=== PATIENT | female | born 1950 | race Caucasian/White ===

== ENCOUNTER 2021-07-03 08:13 | Outpatient (CLI) | payer MEDICARE, MEDICAID ==
[~2021-07-03] VITALS: Ht 160 cm; Wt 66.8 kg
[~2021-07-03 08:13] MED LIST: DIAZ5TAB4 PO; DOXE10CA PO; FLUO20CA16 PO; LACT20SO PO; LEVO25TA55 PO; PANT40TA77 PO
[2021-07-03] MEDS ORDERED: TRAM50TA PO (08:57)
[2021-07-03] MEDS ORDERED: DOXE25CA PO (08:57)
[2021-07-03] MEDS ORDERED: FLUO40CA9 PO (08:57)
[2021-07-03] MEDS ORDERED: SPIR25TA PO (08:57)
[2021-07-03 09:10] VITALS: BP 141/61
[2021-07-03 09:36] VITALS: BP 146/62
[2021-07-03 09:50] VITALS: BP 140/57
[2021-07-03 09:55] VITALS: BP 136/61
--- NOTE | 2021-07-03 09:59 | RAD ---
Ultrasound-guided paracentesis. 07/03/2021 9:57 AM Indication: Reason: Ascites / Spl. Instructions: FLUID TOTAL: 2.2L / History: Discussion: The risks and benefits of the procedure including but not limited to bleeding, hypotensio n, and infection were discussed the patient. Informed consent was obtained. Ultrasound evaluation was performed demonstrating ascites, with the largest pocket and the right lower quadrant. The right low er quadrant was prepped and draped in sterile fashion. 1% lidocaine without epinephrine was administe red for local anesthesia. Under direct ultrasound guidance a 5 Colombian Yueh needle was advanced into t he peritoneal space. Serous fluid was aspirated. The catheter was connected to suction and approximat shiloh 2.2 liters of fluid was removed. The catheter was then removed and manual pressure was held to a chieve hemostasis. A sterile dressing was applied. Impression: Ultrasound-guided paracentesis with removal of 2.2 L of ascites Electronically signed by: Brian Castañeda MD (07/03/2021 9:57 AM) [id number]
[2021-07-03 10:10] VITALS: BP 137/59
[2021-07-03 10:25] VITALS: BP 135/58
--- NOTE | 2021-07-03 10:46 | NUR ---
Discharge Note: NEFTALI RUIZ Discharge instructions and discharge home medications reviewed with Patient and Son-Isac and a copy given. All questions have been answered and understanding verbalized. The following instructions and handouts were given: Paracentesis Discontinued lines and drains: N/A Patient discharged to home with son via personal vehicle.
== END 2021-07-03 10:49 | disposition home or self-care (01) ==
LOC: INTRAD 08:13
PROVIDERS: ATTEND Internal Medicine Gastroenterology
DX: R18.8 Other ascites (principal); E78.00 Pure hypercholesterolemia, unspecified; E03.9 Hypothyroidism, unspecified; J44.9 Chronic obstructive pulmonary disease, unspecified; K21.9 Gastro-esophageal reflux disease without esophagitis; M19.90 Unspecified osteoarthritis, unspecified site; F41.9 Anxiety disorder, unspecified; F32.9 Major depressive disorder, single episode, unspecified; F17.210 Nicotine dependence, cigarettes, uncomplicated; Z79.899 Other long term (current) drug therapy; Z98.890 Other specified postprocedural states; Z88.0 Allergy status to penicillin; Z88.1 Allergy status to other antibiotic agents; Z88.2 Allergy status to sulfonamides; Z88.5 Allergy status to narcotic agent; Z88.8 Allergy status to other drugs, medicaments and biological substances
CPT/HCPCS: 49083

== ENCOUNTER 2021-10-12 11:51 | Inpatient (IN) | payer MEDICARE, MEDICAID ==
[~2021-10-12] VITALS: Ht 160 cm; Wt 55.0 kg
[~2021-10-12 11:51] MED LIST changes: +DOXE25CA PO; +FLUO40CA9 PO; +SPIR25TA PO; +TRAM50TA PO
[2021-10-12 13:44] LABS: BASO # 0.1 x10^3/uL (0.0-0.2); BASO % 0 % (0-3); EOS % 0 % (0-3); HEMATOCRIT 28.5 % (36.0-47.0); HEMOGLOBIN 9.3 g/dL (12.0-15.5); LYMPH # 1.2 x10^3/uL (1.0-4.8); LYMPH % 8 % (24-48); MEAN CORPUSCULAR HEMOGLOBIN 28 pg (25-35); MEAN CORPUSCULAR HGB CONC 33 g/dL (31-37); MEAN CORPUSCULAR VOLUME 84 fL (79-100); MONO # 1.3 x10^3/uL (0.0-1.1); MONO % 8 % (0-9); NEUT # 13.1 x10^3/uL (1.8-7.7); NEUT % 84 % (31-73); PLATELET COUNT 422 x10^3/uL (140-400); RED BLOOD COUNT 3.39 x10^6/uL (3.50-5.40); RED CELL DISTRIBUTION WIDTH 14.7 % (11.5-14.5); WHITE BLOOD COUNT 15.7 x10^3/uL (4.0-11.0)
--- NOTE | 2021-10-12 13:47 | PHYS DOC ---
Past Medical History Past Medical History: Liver Disease Additional Past Medical Histor: portal hypertension, svt, crytoogenic cirrhosis, splenomegaly Past Surgical History: Hysterectomy, Other Additional Past Surgical Histo: PARACENTESIS Smoking Status: Former Smoker Alcohol Use: None Drug Use: None General Adult EDM: Chief Complaint: ABDOMINAL PAIN HPI: HPI: Patient is a 71-year-old female that presents today with generalized weakness and abdominal pain. Patient states that she was to see Dr. Wolf her primary care physician today and her son called the office and told them that she will had been falling frequently and they felt that she needed to be seen in the emergency department for a more thorough work-up than what they can do in the of [facility]. When talking to the patient she states that she has a history of liver failure of an unknown cause, she states that she also has a history of C. difficile for which she was treated for antibiotics in the past, she says that over the last couple of weeks she has noticed that her abdomen has gotten bigger in size and it is hurting her, she states she feels bloated and she is also having diarrhea. Patient also states that she fell today and did hit her head, and she is also having left upper chest wall pain as well. Patient also states that she has an appointment in a couple of weeks at the [facility] for a specialist and liver disease she does not know who that is, when asked if she follows a GI specialist here at [facility] she was unable to give me that information. Review of Systems: Review of Systems: Constitutional: Denies fever or chills. [] Eyes: Denies change in visual acuity. [] HENT: Denies nasal congestion or sore throat. [] Respiratory: Denies cough or shortness of breath. [] Cardiovascular: Denies chest pain or edema. [] GI: Abdominal pain, nausea, diarrhea denies vomiting, bloody stools [] : Denies dysuria. [] Musculoskeletal: Denies back pain or joint pain. [] Integument: Denies rash. [] Neurologic: Generalized weakness denies headache, focal weakness or sensory changes. [] Endocrine: Denies polyuria or polydipsia. [] Lymphatic: Denies swollen glands. [] Psychiatric: Denies depression or anxiety. [] Heart Score: C/O Chest Pain: N/A Risk Factors: Risk Factors: DM, Current or recent (<one month) smoker, HTN, HLP, family hist ory of CAD, obesity. Risk Scores: Score 0 - 3: 2.5% MACE over next 6 weeks - Discharge Home Score 4 - 6: 20.3% MACE over next 6 weeks - Admit for Clinical Observation Score 7 - 10: 72.7% MACE over next 6 weeks - Early Invasive Strategies Allergies: Allergies: Allergies Coded Allergies Type Severity Reaction Last Updated Verified codeine Allergy Intermediate Rash 06/15/21 Yes Aminoglycosides Adverse Reaction Intermediate Rash 06/15/21 Yes Carbapenems Adverse Reaction Intermediate Rash 06/15/21 Yes Cephalosporins Adverse Reaction Intermediate Rash 06/15/21 Yes Macrolide Antibiotics Adverse Reaction Intermediate Rash 06/15/21 Yes Penicillins Adverse Reaction Intermediate Rash 06/15/21 Yes Quinolones Adverse Reaction Intermediate Rash 06/15/21 Yes Sulfa (Sulfonamide Antibiotics) Adverse Reaction Intermediate Rash 06/15/21 Yes Tetracyclines Adverse Reaction Intermediate Rash 06/15/21 Yes aztreonam Adverse Reaction Intermediate Rash 06/15/21 Yes clindamycin Adverse Reaction Intermediate Rash 06/15/21 Yes fosfomycin Adverse Reaction Intermediate Rash 06/15/21 Yes linezolid Adverse Reaction Intermediate Rash 06/15/21 Yes metronidazole Adverse Reaction Intermediate Rash 06/15/21 Yes nitrofurantoin Adverse Reaction Intermediate Rash 06/15/21 Yes vancomycin Adverse Reaction Intermediate Rash 06/20/21 Yes Physical Exam: PE: Constitutional: Frail thin elderly female toxic in mild distress, no increased work of breathing HENT: Normocephalic, atraumatic, bilateral external ears normal, oropharynx moist, no oral exudates, nose normal. [] Eyes: PERRLA, EOMI, conjunctiva yellow no discharge. [] Neck: Normal range of motion, no tenderness, supple, no stridor, no midline tenderness Cardiovascular:Heart rate regular rhythm, no murmur [] Lungs & Thorax: Bilateral breath sounds clear to auscultation, diminished bases, tenderness noted over the left upper chest wall, swelling was slightly noted no laceration, abrasion, contusion, or erythema noted Abdomen: Abdomen is rounded and very distended, tenderness noted over the liver, hypoactive bowel sounds, no masses, no pulsatile masses. [] Skin: Pale, cool, dry, no erythema, no rash. [] Back: No tenderness, no CVA tenderness. [] Extremities: Muscular atrophy noted in all 4 extremities, 2+ peripheral pulses noted cap refill is less than 2 seconds no tenderness, no cyanosis, no clubbing, ROM intact, no edema, [] Neurologic: Alert and oriented X 3, normal motor function, normal sensory function, no focal deficits noted. [] Psychologic: Affect flat, judgement normal, mood normal. [] Current Patient Data: Labs: Laboratory Tests Test 10/12/21 13:00 10/12/21 13:33 10/12/21 13:55 10/12/21 16:30 Prothrombin Time 15.3 SEC Prothromb Time International Ratio 1.2 Activated Partial Thromboplast Time 25 SEC White Blood Count 15.7 x10^3/uL Red Blood Count 3.39 x10^6/uL Hemoglobin 9.3 g/dL Hematocrit 28.5 % Mean Corpuscular Volume 84 fL Mean Corpuscular Hemoglobin 28 pg Mean Corpuscular Hemoglobin Concent 33 g/dL Red Cell Distribution Width 14.7 % Platelet Count 422 x10^3/uL Neutrophils (%) (Auto) 84 % Lymphocytes (%) (Auto) 8 % Monocytes (%) (Auto) 8 % Eosinophils (%) (Auto) 0 % Basophils (%) (Auto) 0 % Neutrophils # (Auto) 13.1 x10^3/uL Lymphocytes # (Auto) 1.2 x10^3/uL Monocytes # (Auto) 1.3 x10^3/uL Eosinophils # (Auto) 0.0 x10^3/uL Basophils # (Auto) 0.1 x10^3/uL Segmented Neutrophils % 89 % Lymphocytes % 6 % Monocytes % 5 % Platelet Estimate Increased Polychromasia Present Poikilocytosis Slight Anisocytosis Slight Spherocytes Occ Ovalocytes Occ Sodium Level 117 mmol/L Potassium Level 4.4 mmol/L Chloride Level 88 mmol/L Carbon Dioxide Level 19 mmol/L Anion Gap 10 Blood Urea Nitrogen 16 mg/dL Creatinine 0.8 mg/dL Estimated GFR (Cockcroft-Gault) 70.3 BUN/Creatinine Ratio 20 Glucose Level 118 mg/dL Lactic Acid Level 1.8 mmol/L Calcium Level 8.5 mg/dL Total Bilirubin 1.7 mg/dL Aspartate Amino Transf (AST/SGOT) 115 U/L Alanine Aminotransferase (ALT/SGPT) 90 U/L Alkaline Phosphatase 201 U/L Ammonia < 10 mcmol/L Troponin I High Sensitivity 580 ng/L [id number]-Type Natriuretic Peptide 3025 pg/mL Total Protein 6.9 g/dL Albumin 2.6 g/dL Albumin/Globulin Ratio 0.6 Influenza Type A Antigen Negative Influenza Type B Antigen Negative SARS-CoV-2 Antigen (Rapid) Negative Urine Collection Type U cath Urine Color Yellow Urine Clarity Clear Urine pH 6.5 Urine Specific [place] >=1.030 Urine Protein Negative mg/dL Urine Glucose (UA) Negative mg/dL Urine Ketones (Stick) 15 mg/dL Urine Blood Negative Urine Nitrite Negative Urine Bilirubin Negative Urine Urobilinogen Dipstick 1.0 mg/dL Urine Leukocyte Esterase Negative Urine RBC 0 /HPF Urine WBC Occ /HPF Urine Squamous Epithelial Cells Few /LPF Urine Bacteria Few /HPF Urine Hyaline Casts Occasional /HPF Urine Mucus Slight /LPF Current Medications Medications (Trade) Dose Ordered Sig/Francisco Route PRN Reason Start Time Stop Time Status Last Admin Dose Admin Fentanyl Citrate (Fentanyl 2ml Vial) 50 mcg 1X ONCE IVP 10/12/21 14:00 10/12/21 14:01 DC 10/12/21 15:02 Ondansetron HCl (Zofran) 4 mg 1X ONCE IVP 10/12/21 14:00 10/12/21 14:01 DC 10/12/21 15:01 Iohexol (Omnipaque 300 Mg/ml) 75 ml 1X ONCE IV 10/12/21 14:30 10/12/21 14:31 DC 10/12/21 14:43 Sodium Chloride 1,000 ml @ 999 mls/hr 1X ONCE IV 10/12/21 14:30 10/12/21 15:30 DC 10/12/21 15:02 Info (CONTRAST GIVEN -- Rx MONITORING) 1 each PRN DAILY PRN MC SEE COMMENTS 10/12/21 14:30 10/14/21 14:29 Ondansetron HCl (Zofran) 4 mg PRN Q8HRS PRN IVP NAUSEA/VOMITING 10/12/21 16:00 10/13/21 15:59 Fentanyl Citrate (Fentanyl 2ml Vial) 50 mcg PRN Q3HRS PRN IVP PAIN 10/12/21 16:00 10/13/21 15:59 Sodium Chloride 1,000 ml @ 100 mls/hr CONT PRN IV SEE I/O RECORD 10/12/21 16:00 Pantoprazole Sodium (Protonix) 40 mg DAILY PO 10/12/21 17:00 Laboratory Tests Test 10/12/21 13:33 White Blood Count 15.7 x10^3/uL (4.0-11.0) H Red Blood Count 3.39 x10^6/uL (3.50-5.40) L Hemoglobin 9.3 g/dL (12.0-15.5) L Hematocrit 28.5 % (36.0-47.0) L Mean Corpuscular Volume 84 fL (79-100) Mean Corpuscular Hemoglobin 28 pg (25-35) Mean Corpuscular Hemoglobin Concent 33 g/dL (31-37) Red Cell Distribution Width 14.7 % (11.5-14.5) H Platelet Count 422 x10^3/uL (140-400) H Neutrophils (%) (Auto) 84 % (31-73) H Lymphocytes (%) (Auto) 8 % (24-48) L Monocytes (%) (Auto) 8 % (0-9) Eosinophils (%) (Auto) 0 % (0-3) Basophils (%) (Auto) 0 % (0-3) Neutrophils # (Auto) 13.1 x10^3/uL (1.8-7.7) H Lymphocytes # (Auto) 1.2 x10^3/uL (1.0-4.8) Monocytes # (Auto) 1.3 x10^3/uL (0.0-1.1) H Eosinophils # (Auto) 0.0 x10^3/uL (0.0-0.7) Basophils # (Auto) 0.1 x10^3/uL (0.0-0.2) Platelet Estimate Pending Laboratory Tests 10/12/21 13:33 Vital Signs: Vital Signs Date Time Temp Pulse Resp B/P (MAP) Pulse Ox O2 Delivery O2 Flow Rate FiO2 10/12/21 15:02 92 Room Air 10/12/21 14:40 91 102/42 (62) 95 Room Air 10/12/21 14:15 87 116/55 (75) 93 Room Air 10/12/21 13:45 87 121/51 (74) 96 Room Air 10/12/21 13:15 86 126/51 (76) 95 Room Air 10/12/21 12:39 97.5 87 18 142/47 (78) 95 Room Air 97.5 Vital Signs Date Time Temp Pulse Resp B/P (MAP) Pulse Ox O2 Delivery O2 Flow Rate FiO2 10/12/21 12:39 97.5 87 18 142/47 (78) 95 Room Air 97.5 EKG: EKG: EKG done at [address] Baugh at 1358 sinus rhythm heart rate of 88 with a RI interval of 156 and a QTC of 485 no STEMI [] Radiology/Procedures: Radiology/Procedures: REASON: fall and hit head PROCEDURE: CT HEAD AND CERVICAL SPINE WO PQRS Compliance Statement: One or more of the following individualized dose reduction techniques were utilized for this examination: 1. Automated exposure control 2. Adjustment of the mA and/or kV according to patient size 3. Use of iterative reconstruction technique CT HEAD AND CERVICAL SPINE WITHOUT CONTRAST History: Reason: fall and hit head Comparison: None. Procedure: Axial images are obtained of the head from the skull base through the vertex without IV contrast. Noncontrast helical CT of the cervical spine was performed. Axial, sagittal, and coronal reconstructions were obtained. Findings: The ventricles and sulci are prominent, consistent with generalized cerebral atrophy. There is periventricular white matter hypoattenuation. This is a nonspecific finding but is commonly due to chronic small vessel ischemic disease in a patient of this age. No mass-effect, midline shift, hemorrhage or obvious acute infarction is identified. Basilar cisterns are patent. Bone windows demonstrate no significant calvarial abnormality. Probable postsurgical change of the left temporal bone. The visualized paranasal sinuses are clear. Mastoid air cells are well aerated. There is no evidence of acute fracture or acute malalignment of the cervical spine. There are no perched or jumped facet joints. The vertebral body height and alignment are maintained. There is mild disc space narrowing and degenerative endplate spurring. There is uncinate process hypertrophy at several levels. Patient had head turned at the time of imaging. There are groundglass and linear opacities in the bilateral lung apices that may be infectious/inflammatory or interstitial lung disease. There is a 7 mm right thyroid nodule. IMPRESSION: 1. No acute intracranial abnormality. 2. No acute fracture of the cervical spine. Electronically signed by: Rodrick Sherman MD (10/12/2021 2:55 PM) [id number] REASON: fall and hit head PROCEDURE: CT CHEST ABD PELVIS W/CONTRAST EXAM: CT CHEST, ABDOMEN, AND PELVIS WITH CONTRAST INDICATION: Fell and hit head COMPARISON: CT abdomen pelvis 06/16/2020 TECHNIQUE: Helical CT imaging performed of the chest, abdomen and pelvis after administration of intravenous contrast. Sagittal and coronal reformats were obtained. One or more of the following individualized dose reduction techniques were utilized for this examination: 1. Automated exposure control 2. Adjustment of the mA and/or kV according to patient size 3. Use of iterative reconstruction technique. FINDINGS: CHEST: Thyroid gland and thoracic inlet: Unremarkable. Heart and great vessels: Heart is normal in size. No pericardial effusion. There are coronary artery calcifications. Thoracic aorta is normal in caliber without evidence of traumatic injury. Central pulmonary arteries are clear. Mediastinum and olivier: No lymphadenopathy. There is fluid in the distal esophagus . Distal paraesophageal varices. Lungs and pleura: Mild patchy groundglass opacities, greatest in the upper lobes. Interlobular septal thickening in the lung apices. There is a moderate right pleural effusion with adjacent confluent opacities, likely compressive atelectasis. Trace left pleural effusion with adjacent atelectasis. No pneumothorax. Chest wall and axillae: No axillary lymphadenopathy. Bones: No acute osseous abnormality in the chest. ABDOMEN AND PELVIS: Liver: The liver is cirrhotic in appearance. Gallbladder/Biliary Tree: Gallbladder is present. No definite cholelithiasis. Bile ducts are unremarkable. Pancreas: Normal. Spleen: Normal. Adrenal Glands: Normal. Kidneys/Ureters/Bladder: Kidneys are normal. Ureters and bladder are unremarkable. Reproductive Organs: Uterus is absent or atrophic. Stomach, small bowel, and colon: Small hiatal hernia. No small bowel ob struction. There is diffuse colonic wall thickening, likely due to portal hypertension. Vasculature: No aortic aneurysm. Mild aortoiliac calcified atherosclerosis. Lymph Nodes: No lymphadenopathy. Peritoneum and retroperitoneum: Large volume of ascites. No pneumoperitoneum. Bones: No acute osseous abnormality in the abdomen and pelvis. Mild leftward curvature of the lumbar spine with degenerative disc disease at L3-L4. IMPRESSION: 1. No traumatic injury in the chest, abdomen, or pelvis. 2. Increased, moderate right and trace left pleural effusions. 3. Patchy ground glass opacities throughout the lungs with interlobular septal thickening suspicious for pulmonary edema. Pneumonia is also possible. Right lower lobe consolidation may be partially due to compressive atelectasis. 4. Cirrhosis with paraesophageal varices and increased, large volume of ascites. 5. Wall thickening throughout the colon likely related to portal hypertension. Electronically signed by: Nevin Grove MD (10/12/2021 3:15 PM) [id number] DICTATED and SIGNED BY: NEVIN GROVE MD DATE: 10/12/21 [id number] [] Course & Med Decision Making: Course & Med Decision Making Pertinent Labs and Imaging studies reviewed. (See chart for details) [address] Wolf and reviewed radiological and laboratory findings with him, he states that he is agreeable to admitting this patient for hyponatremia, elevated cardiac enzymes, and abdominal pain related to her liver failure. We will place the patient on normal saline at 100 an hour, consult gastrointestinal specialist and cardiology and repeat a BNP in the morning. Did speak to patient and the son that were at the bedside informed them of all the laboratory and radiological findings that we found and answered all questions to my ability. And they are agreeable to being admitted and agree with the plan of care. [address] Acevedo with GI to inform him of his consult [address] Capone from cardiology and informed him of this consult and the patient's condition. Tracey Disclaimer: Tracey Disclaimer: This electronic medical record was generated, in whole or in part, using a voice recognition dictation system. Departure Departure Impression: Primary Impression: Hyponatremia Additional Impressions: Elevated troponin Cirrhosis of liver with ascites Qualified Codes: K74.60 - Unspecified cirrhosis of liver; R18.8 - Other ascites Pleural effusion Disposition: ADMITTED INPATIENT Admitting Physician: Pretty Perez Condition: GUARDED Referrals: PRETTY PEREZ MD (PCP) FILIPE ROSARIO APRN Oct 12, 2021 13:47
[2021-10-12] MEDS ORDERED: fentaNYL PF VIAL 100 MCG/2 ML VIAL IVP ONE (14:00)
[2021-10-12] MEDS ORDERED: ONDANSETRON PF 4 MG/2 ML VIAL. IVP ONE (14:00)
[2021-10-12 14:01] LABS: ALBUMIN 2.6 g/dL (3.4-5.0); ALBUMIN/GLOBULIN RATIO 0.6 (1.0-1.7); CALCIUM 8.5 mg/dL (8.5-10.1); CREATININE 0.8 mg/dL (0.6-1.0); GFR 70.3; POTASSIUM 4.4 mmol/L (3.5-5.1); TOTAL BILIRUBIN 1.7 mg/dL (0.2-1.0); TOTAL PROTEIN 6.9 g/dL (6.4-8.2)
[2021-10-12 14:23] LABS: INFLUENZA A PATIENT NEGATIVE (NEGATIVE); INFLUENZA B PATIENT NEGATIVE (NEGATIVE)
[2021-10-12 14:26] LABS: PROTHROMBIN TIME PATIENT 15.3 SEC (11.7-14.0)
[2021-10-12] MEDS ORDERED: IOHEXOL 300 MG/ML 100ML VIAL. IV ONE (14:30)
[2021-10-12] MEDS ORDERED: IV NORMAL SALINE 1000ML BAG 1,000 ML IV ONE (14:30)
[2021-10-12] MEDS ORDERED: CONTRAST GIVEN. MC PRN (14:30)
--- NOTE | 2021-10-12 14:57 | RAD ---
PQRS Compliance Statement: One or more of the following individualized dose reduction techniques were utilized for this examinat ion: 1. Automated exposure control 2. Adjustment of the mA and/or kV according to patient size 3. Use of iterative reconstruction technique CT HEAD AND CERVICAL SPINE WITHOUT CONTRAST History: Reason: fall and hit head Comparison: None. Procedure: Axial images are obtained of the head from the skull base through the vertex without IV co ntrast. Noncontrast helical CT of the cervical spine was performed. Axial, sagittal, and coronal rec onstructions were obtained. Findings: The ventricles and sulci are prominent, consistent with generalized cerebral atrophy. There is periv entricular white matter hypoattenuation. This is a nonspecific finding but is commonly due to chroni c small vessel ischemic disease in a patient of this age. No mass-effect, midline shift, hemorrhage or obvious acute infarction is identified. Basilar cistern s are patent. Bone windows demonstrate no significant calvarial abnormality. Probable postsurgical change of the le ft temporal bone. The visualized paranasal sinuses are clear. Mastoid air cells are well aerated. There is no evidence of acute fracture or acute malalignment of the cervical spine. There are no perched or jumped facet joints. The vertebral body height and alignment are maintained. There is mild disc space narrowing and degenerative endplate spurring. There is uncinate process hype rtrophy at several levels. Patient had head turned at the time of imaging. There are groundglass and linear opacities in the bilateral lung apices that may be infectious/inflam matory or interstitial lung disease. There is a 7 mm right thyroid nodule. IMPRESSION: 1. No acute intracranial abnormality. 2. No acute fracture of the cervical spine. Electronically signed by: Rodrick Sherman MD (10/12/2021 2:55 PM) [id number]
--- NOTE | 2021-10-12 15:18 | RAD ---
EXAM: CT CHEST, ABDOMEN, AND PELVIS WITH CONTRAST INDICATION: Fell and hit head COMPARISON: CT abdomen pelvis 06/16/2020 TECHNIQUE: Helical CT imaging performed of the chest, abdomen and pelvis after administration of intr avenous contrast. Sagittal and coronal reformats were obtained. One or more of the following individualized dose reduction techniques were utilized for this examinat ion: 1. Automated exposure control 2. Adjustment of the mA and/or kV according to patient size 3. Use of iterative reconstruction technique. FINDINGS: CHEST: Thyroid gland and thoracic inlet: Unremarkable. Heart and great vessels: Heart is normal in size. No pericardial effusion. There are coronary artery calcifications. Thoracic aorta is normal in caliber without evidence of traumatic injury. Central pul monary arteries are clear. Mediastinum and olivier: No lymphadenopathy. There is fluid in the distal esophagus. Distal paraesophage al varices. Lungs and pleura: Mild patchy groundglass opacities, greatest in the upper lobes. Interlobular septal thickening in the lung apices. There is a moderate right pleural effusion with adjacent confluent op acities, likely compressive atelectasis. Trace left pleural effusion with adjacent atelectasis. No pn eumothorax. Chest wall and axillae: No axillary lymphadenopathy. Bones: No acute osseous abnormality in the chest. ABDOMEN AND PELVIS: Liver: The liver is cirrhotic in appearance. Gallbladder/Biliary Tree: Gallbladder is present. No definite cholelithiasis. Bile ducts are unremark able. Pancreas: Normal. Spleen: Normal. Adrenal Glands: Normal. Kidneys/Ureters/Bladder: Kidneys are normal. Ureters and bladder are unremarkable. Reproductive Organs: Uterus is absent or atrophic. Stomach, small bowel, and colon: Small hiatal hernia. No small bowel obstruction. There is diffuse co lonic wall thickening, likely due to portal hypertension. Vasculature: No aortic aneurysm. Mild aortoiliac calcified atherosclerosis. Lymph Nodes: No lymphadenopathy. Peritoneum and retroperitoneum: Large volume of ascites. No pneumoperitoneum. Bones: No acute osseous abnormality in the abdomen and pelvis. Mild leftward curvature of the lumbar spine with degenerative disc disease at L3-L4. IMPRESSION: 1. No traumatic injury in the chest, abdomen, or pelvis. 2. Increased, moderate right and trace left pleural effusions. 3. Patchy ground glass opacities throughout the lungs with interlobular septal thickening suspicious for pulmonary edema. Pneumonia is also possible. Right lower lobe consolidation may be partially due to compressive atelectasis. 4. Cirrhosis with paraesophageal varices and increased, large volume of ascites. 5. Wall thickening throughout the colon likely related to portal hypertension. Electronically signed by: Nevin Grove MD (10/12/2021 3:15 PM) [id number]
--- NOTE | 2021-10-12 15:57 | EKG ---
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
[2021-10-12] MEDS ORDERED: ONDANSETRON PF 4 MG/2 ML VIAL. IVP PRN ×2 (16:00→20:45)
[2021-10-12 16:05] LABS: % LYMPHS 6 % (24-48); % MONOS 5 % (0-10); % SEGS 89 % (35-66); PLT ESTIMATE INCREASED (ADEQUATE); POLYCHROMASIA PRESENT
[2021-10-12 16:06] LABS: OVALOCYTES OCC; POIKILOCYTOSIS SLIGHT
[2021-10-12 16:07] LABS: ANISOCYTOSIS SLIGHT; SPHEROCYTES OCC
[2021-10-12 16:42] LABS: BILIRUBIN,URINE NEGATIVE (NEG); CLARITY,URINE CLEAR; COLOR,URINE YELLOW; NITRITE,URINE NEGATIVE (NEG); PH,URINE 6.5 (<5.0-8.0); PROTEIN,URINE NEGATIVE (NEG-TRACE)
--- NOTE | 2021-10-12 16:45 | PDOC2 ---
GI CONSULT Date of Service: DATE: 10/12/21 TIME: 16:20 Reason For Consult: cirrhosis HPI: HPI: 71 y/o female, called by ER to see. We saw in 06/2021 - new diagnosis of cirrhosis then, had paracentesis as inpt (fluid studies ok) and outpt. CRYSTAL and viral Hepatitis panel negative then and ammonia slightly elevated. No alcohol history. Iron profile c/w ACD in 06/2021 and B12 above normal. TSH WNL. Recently more abdominal distention/upper discomfort - worse since last week. Not eating much - can't really elaborate. No dysphagia, n/v, constipation, hematochezia, or melena. Denies LE swelling. Medication bottles son provided in ER include pantoprazole but no diuretics. He is fairly certain she is taking one though (thinks spironolactone) - was an empty medication bottle at home and he notes now that she seems to have skipped a day of pills (after looking at her pill box). From previous encounter, no previous EGD or colonoscopy. Also denied GB, pancreas, and PUD history. H/o C Diff in 06/2021 - at that time had significant diarrhea. Still has d iarrhea/loose stools but better. Says Dr. Perez ordered C Diff as outpt - not done yet. Saw Dr. 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 Has appt w/ [facility] in 2 weeks. PMH: PMH: Meniere's, HTN, HLD, hypothyroidism partial hysterectomy FH: Family History: No pertinent hx (denies liver disease and GI cancers) Social History: Smoke: <1 pack per day ALCOHOL: none Drugs: None ROS: GEN: Denies fevers, chills, sweats HEENT: Denies blurred vision, sore throat CV: Denies chest pain RESP: Denies shortness of air, cough GI: Per HPI : Denies hematuria, dysuria ENDO: Denies weight changes NEURO: Denies confusion, dizziness MSK: +weakness SKIN: Denies jaundice, pruritus Vitals: Vitals: Vital Signs Date Time Temp Pulse Resp B/P (MAP) Pulse Ox O2 Delivery O2 Flow Rate FiO2 10/12/21 15:02 92 Room Air 10/12/21 14:40 91 102/42 (62) 10/12/21 12:39 97.5 18 97.5 Labs: Labs: Laboratory Tests Test 10/12/21 13:00 10/12/21 13:33 10/12/21 13:55 Prothrombin Time 15.3 SEC (11.7-14.0) Prothromb Time International Ratio 1.2 (0.8-1.1) Activated Partial Thromboplast Time 25 SEC (24-38) White Blood Count 15.7 x10^3/uL (4.0-11.0) Red Blood Count 3.39 x10^6/uL (3.50-5.40) Hemoglobin 9.3 g/dL (12.0-15.5) Hematocrit 28.5 % (36.0-47.0) Mean Corpuscular Volume 84 fL (79-100) Mean Corpuscular Hemoglobin 28 pg (25-35) Mean Corpuscular Hemoglobin Concent 33 g/dL (31-37) Red Cell Distribution Width 14.7 % (11.5-14.5) Platelet Count 422 x10^3/uL (140-400) Neutrophils (%) (Auto) 84 % (31-73) Lymphocytes (%) (Auto) 8 % (24-48) Monocytes (%) (Auto) 8 % (0-9) Eosinophils (%) (Auto) 0 % (0-3) Basophils (%) (Auto) 0 % (0-3) Neutrophils # (Auto) 13.1 x10^3/uL (1.8-7.7) Lymphocytes # (Auto) 1.2 x10^3/uL (1.0-4.8) Monocytes # (Auto) 1.3 x10^3/uL (0.0-1.1) Eosinophils # (Auto) 0.0 x10^3/uL (0.0-0.7) Basophils # (Auto) 0.1 x10^3/uL (0.0-0.2) Segmented Neutrophils % 89 % (35-66) Lymphocytes % 6 % (24-48) Monocytes % 5 % (0-10) Platelet Estimate Increased (ADEQUATE) Polychromasia Present Poikilocytosis Slight Anisocytosis Slight Spherocytes Occ Ovalocytes Occ Sodium Level 117 mmol/L (136-145) Potassium Level 4.4 mmol/L (3.5-5.1) Chloride Level 88 mmol/L (98-107) Carbon Dioxide Level 19 mmol/L (21-32) Anion Gap 10 (6-14) Blood Urea Nitrogen 16 mg/dL (7-20) Creatinine 0.8 mg/dL (0.6-1.0) Estimated GFR (Cockcroft-Gault) 70.3 BUN/Creatinine Ratio 20 (6-20) Glucose Level 118 mg/dL (70-99) Lactic Acid Level 1.8 mmol/L (0.4-2.0) Calcium Level 8.5 mg/dL (8.5-10.1) Total Bilirubin 1.7 mg/dL (0.2-1.0) Aspartate Amino Transf (AST/SGOT) 115 U/L (15-37) Alanine Aminotransferase (ALT/SGPT) 90 U/L (14-59) Alkaline Phosphatase 201 U/L (46-116) Ammonia < 10 mcmol/L (11-34) Troponin I High Sensitivity 580 ng/L (4-50) YX-Wyy-F-Type Natriuretic Peptide 3025 pg/mL (0-124) Total Protein 6.9 g/dL (6.4-8.2) Albumin 2.6 g/dL (3.4-5.0) Albumin/Globulin Ratio 0.6 (1.0-1.7) Influenza Type A Antigen Negative (NEGATIVE) Influenza Type B Antigen Negative (NEGATIVE) SARS-CoV-2 Antigen (Rapid) Negative (NEGATIVE) Allergies: Coded Allergies: codeine (Verified Allergy, Intermediate, Rash, 06/15/21) Aminoglycosides (Verified Adverse Reaction, Intermediate, Rash, 06/15/21) Carbapenems (Verified Adverse Reaction, Intermediate, Rash, 06/15/21) Cephalosporins (Verified Adverse Reaction, Intermediate, Rash, 06/15/21) Macrolide Antibiotics (Verified Adverse Reaction, Intermediate, Rash, 06/15/21) Penicillins (Verified Adverse Reaction, Intermediate, Rash, 06/15/21) Quinolones (Verified Adverse Reaction, Intermediate, Rash, 06/15/21) Sulfa (Sulfonamide Antibiotics) (Verified Adverse Reaction, Intermediate, Rash, 06/15/21) Tetracyclines (Verified Adverse Reaction, Intermediate, Rash, 06/15/21) aztreonam (Verified Adverse Reaction, Intermediate, Rash, 06/15/21) clindamycin (Verified Adverse Reaction, Intermediate, Rash, 06/15/21) fosfomycin (Verified Adverse Reaction, Intermediate, Rash, 06/15/21) linezolid (Verified Adverse Reaction, Intermediate, Rash, 06/15/21) metronidazole (Verified Adverse Reaction, Intermediate, Rash, 06/15/21) nitrofurantoin (Verified Adverse Reaction, Intermediate, Rash, 06/15/21) vancomycin (Verified Adverse Reaction, Intermediate, Rash, 06/20/21) PO no adverse reaction Medications: Current Medications Medications (Trade) Dose Ordered Sig/Francisco Route PRN Reason Start Time Stop Time Status Last Admin Dose Admin Fentanyl Citrate (Fentanyl 2ml Vial) 50 mcg 1X ONCE IVP 10/12/21 14:00 10/12/21 14:01 DC 10/12/21 15:02 Ondansetron HCl (Zofran) 4 mg 1X ONCE IVP 10/12/21 14:00 10/12/21 14:01 DC 10/12/21 15:01 Iohexol (Omnipaque 300 Mg/ml) 75 ml 1X ONCE IV 10/12/21 14:30 10/12/21 14:31 DC 10/12/21 14:43 Sodium Chloride 1,000 ml @ 999 mls/hr 1X ONCE IV 10/12/21 14:30 10/12/21 15:30 DC 10/12/21 15:02 Imaging: Imaging: Head/C-spine CT IMPRESSION: 1. No acute intracranial abnormality. 2. No acute fracture of the cervical spine. CT C/A/P FINDINGS: CHEST: Thyroid gland and thoracic inlet: Unremarkable. Heart and great vessels: Heart is normal in size. No pericardial effusion. There are coronary artery calcifications. Thoracic aorta is normal in caliber without evidence of traumatic injury. Central pulmonary arteries are clear. Mediastinum and olivier: No lymphadenopathy. There is fluid in the distal esophagus. Distal paraesophageal varices. Lungs and pleura: Mild patchy groundglass opacities, greatest in the upper lobes. Interlobular septal thickening in the lung apices. There is a moderate right pleural effusion with adjacent confluent opacities, likely compressive atelectasis. Trace left pleural effusion with adjacent atelectasis. No pneumothorax. Chest wall and axillae: No axillary lymphadenopathy. Bones: No acute osseous abnormality in the chest. ABDOMEN AND PELVIS: Liver: The liver is cirrhotic in appearance. Gallbladder/Biliary Tree: Gallbladder is present. No definite cholelithiasis. Bile ducts are unremarkable. Pancreas: Normal. Spleen: Normal. Adrenal Glands: Normal. Kidneys/Ureters/Bladder: Kidneys are normal. Ureters and bladder are unremarkable. Reproductive Organs: Uterus is absent or atrophic. Stomach, small bowel, and colon: Small hiatal hernia. No small bowel obstruction. There is diffuse colonic wall thickening, likely due to portal hypertension. Vasculature: No aortic aneurysm. Mild aortoiliac calcified atherosclerosis. Lymph Nodes: No lymphadenopathy. Peritoneum and retroperitoneum: Large volume of ascites. No pneumoperitoneum. Bones: No acute osseous abnormality in the abdomen and pelvis. Mild leftward curvature of the lumbar spine with degenerative disc disease at L3-L4. IMPRESSION: 1. No traumatic injury in the chest, abdomen, or pelvis. 2. Increased, moderate right and trace left pleural effusions. 3. Patchy ground glass opacities throughout the lungs with interlobular septal thickening suspicious for pulmonary edema. Pneumonia is also possible. Right lower lobe consolidation may be partially due to compressive atelectasis. 4. Cirrhosis with paraesophageal varices and increased, large volume of ascites. 5. Wall thickening throughout the colon likely related to portal hypertension. Echo 06/2021 <Conclusion> The left ventricular systolic function is normal. The ejection fraction is 65-70%. There is normal LV segmental wall motion. Mild aortic regurgitation. Mild to moderate mitral regurgitation. Trace tricuspid regurgitation. There is no evidence of significant pericardial effusion. PE: GEN: appears chronically ill HEENT: Atraumatic, PERRL LUNGS: clear anteriorly HEART: RRR ABD: distended w/ ascites, uncomfortable, BS+ EXTREMITY: No edema SKIN: No rashes, no jaundice NEURO/PSYCH: A & O 3 - fuzzy on details, similar to what I recall from previous encounter A/P: A/P: Abdominal distention/discomfort, anorexia Leukocytosis, ACD, hyponatremia, elevated LFTs, elevated BNP and troponin Cirrhosis - presumably ELY - CT notes paraesophageal varices, large ascites CRC screen - none Loose stools - chronic H/o C Diff -- Will ask for paracentesis. Address hyponatremia. Hold diuretics for now. Fluid/salt restriction. Resume PPI if okay w/ others. Agree w/ checking C Diff. Cardiology to see. Keep hepatology appt @ . ANDREW JIMENEZ Oct 12, 2021 16:45
[2021-10-12 16:57] LABS: BACTERIA,URINE FEW /HPF (0-FEW)
[2021-10-12 16:58] LABS: HYALINE CASTS, URINE OCCASIONAL /HPF; RBC,URINE 0 /HPF (0-2); WBC,URINE OCC /HPF (0-4)
[2021-10-12] MEDS: PANTOPRAZOLE 40 MG TABLET.DR. PO SCH (18:14)
[2021-10-12] MEDS: fentaNYL PF VIAL 100 MCG/2 ML VIAL IVP PRN (18:20)
[2021-10-12] MEDS ORDERED: METOCLOPRAMIDE HCL 10 MG/2 ML VIAL. IVP ONE (20:45)
[2021-10-12 21:16] VITALS: BP 120/56
--- NOTE | 2021-10-12 21:30 | NUR ---
The patient, NEFTALI RUIZ, 71 y/o, F admitted by PRETTY ALCARAZ MD, was given written information regarding hospital policies, unit procedures and contact persons. Valuables were checked, Assessment completed vs obtained and stable pt denied pain call light placed in reach bed alarm set will resume care and continue to monitor pt.
[2021-10-12 22:19] VITALS: BP 120/56
[2021-10-13] VITALS (8 sets, daily range): BP systolic 97–121; BP diastolic 48–62
[2021-10-13 06:13] LABS: CALCIUM 8.3 mg/dL (8.5-10.1); CREATININE 0.8 mg/dL (0.6-1.0); GFR 70.3
[2021-10-13] MEDS: fentaNYL PF VIAL 100 MCG/2 ML VIAL IVP PRN ×2 (07:16→14:47)
[2021-10-13 07:20] LABS: HEMOGLOBIN 9.1 g/dL (12.0-15.5); RED BLOOD COUNT 3.3 x10^6/uL (3.50-5.40); RED CELL DISTRIBUTION WIDTH 14.5 % (11.5-14.5); WHITE BLOOD COUNT 17.5 x10^3/uL (4.0-11.0)
[2021-10-13] MEDS: IV NORMAL SALINE 1000ML BAG 1,000 ML IV PRN (07:31)
[2021-10-13] MEDS: PANTOPRAZOLE 40 MG TABLET.DR. PO SCH (08:37)
--- NOTE | 2021-10-13 10:42 | PDOC2 ---
JESSICA COLON CEO NA 10/13/21 1042: CARDIAC CONSULT DATE OF CONSULT Date of Consult DATE: 10/13/21 TIME: 10:24 REASON FOR CONSULT Reason for Consult: Elevated troponin REFERRING PHYSICIAN Referring Physician: Steven SOURCE Source: Chart review, Patient HISTORY OF PRESENT ILLNESS HISTORY OF PRESENT ILLNESS This is a 71 yo female admitte for complains of abdominal pain and weakness. She has been frequently falling due to weakness but no apparent injuries. She has been having abdominal with currently distended abdomen and has been having diarrhea nausea and vomiting. No chest pain and no significant SOA. Denies any palpitations. She has had paracentesis in the past and is due to see a hepatologis re her cirrhosis at [facility]. She has not eaten much 2 days prior to being admitted. PAST MEDICAL HISTORY Past Medical History Meniere's disease with frequent falls, hypothyroidism, hypertension, hyperlipidemia, recent diagnosis of cirrhosis, NSVT, C-Diff, Anemia PAST SURGICAL HISTORY Past Surgical History: Hysterectomy FAMILY HISTORY Family History: Stroke SOCIAL HISTORY Smoke: <1 pack per day ALCOHOL: none Drugs: None Lives: Alone CURRENT MEDICATIONS CURRENT MEDICATIONS Current Medications Medications (Trade) Dose Ordered Sig/Francisco Route PRN Reason Start Time Stop Time Status Last Admin Dose Admin Fentanyl Citrate (Fentanyl 2ml Vial) 50 mcg 1X ONCE IVP 10/12/21 14:00 10/12/21 14:01 DC 10/12/21 15:02 Ondansetron HCl (Zofran) 4 mg 1X ONCE IVP 10/12/21 14:00 10/12/21 14:01 DC 10/12/21 15:01 Iohexol (Omnipaque 300 Mg/ml) 75 ml 1X ONCE IV 10/12/21 14:30 10/12/21 14:31 DC 10/12/21 14:43 Sodium Chloride 1,000 ml @ 999 mls/hr 1X ONCE IV 10/12/21 14:30 10/12/21 15:30 DC 10/12/21 15:02 Fentanyl Citrate (Fentanyl 2ml Vial) 50 mcg PRN Q3HRS PRN IVP PAIN 10/12/21 16:00 10/13/21 15:59 10/13/21 07:16 Sodium Chloride 1,000 ml @ 100 mls/hr CONT PRN IV SEE I/O RECORD 10/12/21 16:00 10/13/21 07:31 Pantoprazole Sodium (Protonix) 40 mg DAILY PO 10/12/21 17:00 10/13/21 08:37 Ondansetron HCl (Zofran) 4 mg PRN Q4HRS PRN IVP NAUSEA/VOMITING 10/12/21 20:45 10/12/21 20:43 ALLERGIES ALLERGIES: Coded Allergies: Aminoglycosides (Verified Allergy, Intermediate, Rash, 10/13/21) Carbapenems (Verified Allergy, Intermediate, Rash, 10/13/21) Cephalosporins (Verified Allergy, Intermediate, Rash, 10/13/21) Macrolide Antibiotics (Verified Allergy, Intermediate, Rash, 10/13/21) Penicillins (Verified Allergy, Intermediate, Rash, 10/13/21) Quinolones (Verified Allergy, Intermediate, Rash, 10/13/21) Sulfa (Sulfonamide Antibiotics) (Verified Allergy, Intermediate, Rash, 10/13/21) Tetracyclines (Verified Allergy, Intermediate, Rash, 10/13/21) aztreonam (Verified Allergy, Intermediate, Rash, 10/13/21) clindamycin (Verified Allergy, Intermediate, Rash, 10/13/21) codeine (Verified Allergy, Intermediate, Rash, 06/15/21) fosfomycin (Verified Allergy, Intermediate, Rash, 10/13/21) linezolid (Verified Allergy, Intermediate, Rash, 10/13/21) metronidazole (Verified Allergy, Intermediate, Rash, 10/13/21) nitrofurantoin (Verified Allergy, Intermediate, Rash, 10/13/21) vancomycin (Verified Allergy, Intermediate, Rash, 10/13/21) PO no adverse reaction ROS Review of System 14 point ROS evaluated with pertinent positives noted per HPI PHYSICAL EXAM General: Alert, Oriented X3, Cooperative, No acute distress HEENT: Atraumatic, Mucous membr. moist/pink Lungs: Other (basilar crackles) Heart: Regular rate (SR), Normal S1, Normal S2, Other (2/6 systolic murmur to LLS border) Abdomen: Soft, Other (ascites) Extremities: No cyanosis, Other (trace to 1+ bilateral; LE pitting edema) Skin: No breakdown Neuro: Sensation intact Psych/Mental Status: Mental status NL, Mood NL MUSCULOSKELETAL: Osteoarthritic changes both hands VITALS/I&O VITALS/I&O: Vital Signs Date Time Temp Pulse Resp B/P (MAP) Pulse Ox O2 Delivery O2 Flow Rate FiO2 10/13/21 07:28 97.5 87 20 118/62 (80) 97 Nasal Cannula 2.0 97.5 I & O 10/12/21 10/12/21 10/13/21 15:00 23:00 07:00 Intake Total 1000 ml 200 ml Output Total 400 ml Balance 1000 ml -200 ml LABS Lab: Laboratory Tests Test 10/12/21 13:00 10/12/21 13:33 10/12/21 13:55 10/12/21 16:30 Prothrombin Time 15.3 SEC (11.7-14.0) H Prothrombin Time INR 1.2 (0.8-1.1) H Activated Partial Thromboplast Time 25 SEC (24-38) White Blood Count 15.7 x10^3/uL (4.0-11.0) H Red Blood Count 3.39 x10^6/uL (3.50-5.40) L Hemoglobin 9.3 g/dL (12.0-15.5) L Hematocrit 28.5 % (36.0-47.0) L Mean Corpuscular Volume 84 fL (79-100) Mean Corpuscular Hemoglobin 28 pg (25-35) Mean Corpuscular Hemoglobin Concent 33 g/dL (31-37) Red Cell Distribution Width 14.7 % (11.5-14.5) H Platelet Count 422 x10^3/uL (140-400) H Neutrophils (%) (Auto) 84 % (31-73) H Lymphocytes (%) (Auto) 8 % (24-48) L Monocytes (%) (Auto) 8 % (0-9) Eosinophils (%) (Auto) 0 % (0-3) Basophils (%) (Auto) 0 % (0-3) Neutrophils # (Auto) 13.1 x10^3/uL (1.8-7.7) H Lymphocytes # (Auto) 1.2 x10^3/uL (1.0-4.8) Monocytes # (Auto) 1.3 x10^3/uL (0.0-1.1) H Eosinophils # (Auto) 0.0 x10^3/uL (0.0-0.7) Basophils # (Auto) 0.1 x10^3/uL (0.0-0.2) Segmented Neutrophils % 89 % (35-66) H Lymphocytes % 6 % (24-48) L Monocytes % 5 % (0-10) Platelet Estimate Increased (ADEQUATE) Polychromasia Present Poikilocytosis Slight Anisocytosis Slight Spherocytes Occ Ovalocytes Occ Sodium Level 117 mmol/L (136-145) *L Potassium Level 4.4 mmol/L (3.5-5.1) Chloride Level 88 mmol/L (98-107) L Carbon Dioxide Level 19 mmol/L (21-32) L Anion Gap 10 (6-14) Blood Urea Nitrogen 16 mg/dL (7-20) Creatinine 0.8 mg/dL (0.6-1.0) Estimated GFR (Cockcroft-Gault) 70.3 BUN/Creatinine Ratio 20 (6-20) Glucose Level 118 mg/dL (70-99) H Lactic Acid Level 1.8 mmol/L (0.4-2.0) Calcium Level 8.5 mg/dL (8.5-10.1) Total Bilirubin 1.7 mg/dL (0.2-1.0) H Aspartate Amino Transferase (AST) 115 U/L (15-37) H Alanine Aminotransferase (ALT) 90 U/L (14-59) H Alkaline Phosphatase 201 U/L (46-116) H Ammonia < 10 mcmol/L (11-34) L Troponin I High Sensitivity 580 ng/L (4-50) H KN-Apd-V-Type Natriuretic Peptide 3025 pg/mL (0-124) H Total Protein 6.9 g/dL (6.4-8.2) Albumin 2.6 g/dL (3.4-5.0) L Albumin/Globulin Ratio 0.6 (1.0-1.7) L Influenza Type A Antigen Negative (NEGATIVE) Influenza Type B Antigen Negative (NEGATIVE) SARS-CoV-2 Antigen (Rapid) Negative (NEGATIVE) Urine Collection Type U cath Urine Color Yellow Urine Clarity Clear Urine pH 6.5 (<5.0-8.0) Urine Specific [place] >=1.030 (1.000-1.030) Urine Protein Negative mg/dL (NEG-TRACE) Urine Glucose (UA) Negative mg/dL (NEG) Urine Ketones (Stick) 15 mg/dL (NEG) Urine Blood Negative (NEG) Urine Nitrite Negative (NEG) Urine Bilirubin Negative (NEG) Urine Urobilinogen Dipstick 1.0 mg/dL (0.2 mg/dL) Urine Leukocyte Esterase Negative (NEG) Urine RBC 0 /HPF (0-2) Urine WBC Occ /HPF (0-4) Urine Squamous Epithelial Cells Few /LPF Urine Bacteria Few /HPF (0-FEW) Urine Hyaline Casts Occasional /HPF Urine Mucus Slight /LPF Test 10/12/21 17:35 10/12/21 18:25 10/13/21 05:05 Troponin I High Sensitivity 508 ng/L (4-50) H 595 ng/L (4-50) H White Blood Count 17.5 x10^3/uL (4.0-11.0) H Red Blood Count 3.30 x10^6/uL (3.50-5.40) L Hemoglobin 9.1 g/dL (12.0-15.5) L Hematocrit 28.0 % (36.0-47.0) L Mean Corpuscular Volume 85 fL (79-100) Mean Corpuscular Hemoglobin 28 pg (25-35) Mean Corpuscular Hemoglobin Concent 33 g/dL (31-37) Red Cell Distribution Width 14.5 % (11.5-14.5) Platelet Count 322 x10^3/uL (140-400) Sodium Level 123 mmol/L (136-145) L Potassium Level 5.0 mmol/L (3.5-5.1) Chloride Level 92 mmol/L (98-107) L Carbon Dioxide Level 20 mmol/L (21-32) L Anion Gap 11 (6-14) Blood Urea Nitrogen 15 mg/dL (7-20) Creatinine 0.8 mg/dL (0.6-1.0) Estimated GFR (Cockcroft-Gault) 70.3 Glucose Level 78 mg/dL (70-99) Calcium Level 8.3 mg/dL (8.5-10.1) L Laboratory Tests 10/12/21 13:33 10/13/21 05:05 Laboratory Tests 10/12/21 13:33 10/13/21 05:05 ECHOCARDIOGRAM ECHOCARDIOGRAM <Conclusion> The left ventricular systolic function is normal. The ejection fraction is 65-70%. There is normal LV segmental wall motion. Mild aortic regurgitation. Mild to moderate mitral regurgitation. Trace tricuspid regurgitation. There is no evidence of significant pericardial effusion. DATE: 06/19/21 [id number] ASSESSMENT/PLAN ASSESSMENT/PLAN 1. Abdominal pain with hx of cirrhosis 2. Severe hyponatremia with associated recent nausea/vomiting and diarrhea 3. Chronic diastolic CHF: clinically compensated 4. Cirrhosis/Ascites 5. Mild troponin elevation: no CP or SOA. EKG SR without acute changes. Recent EF nml. suspect type 2 demand mediated 6. Hypothyroidism Recommendations May need paracentesis, defer to GI Consider for outpatient ischemic evaluation At this time she will not tolerate BB, monitor BP trend. Start on baby ASA. check FLP, TSH. Hold any lasix Supportive care MICHAEL HILTON MD 10/13/[id number]: CARDIAC CONSULT ASSESSMENT/PLAN ASSESSMENT/PLAN Patient seen and examined. Agree with INFORMATION SYSTEMS SECURITY DEVELOPER's assessment and plan. NSTEMI probably demand ischemia - doubt ACS Chr diast HF compensated Recent echo showed normal LVF without any WMA Treat cirrhosis/ascites per GI team Thank you for your consultation JESSICA COLON APRN Oct 13, 2021 10:42 MICHAEL HILTON MD Oct 13, 2021 18:19
[2021-10-13 11:05] LABS: CHOLESTEROL/HDL RATIO 12.6
--- NOTE | 2021-10-13 11:22 | PDOC ---
Date of Service: DATE: 10/13/21 TIME: 11:17 Subjective: Subjective: Doesn't feel well. No diarrhea, didn't eat today. Objective: Objective: D/w nurse - NPO for paracentesis. No stools charted/C Diff uncollected. Vital Signs: Vital Signs Date Time Temp Pulse Resp B/P (MAP) Pulse Ox O2 Delivery O2 Flow Rate FiO2 10/13/21 11:00 98.0 95 20 121/60 (80) 96 Nasal Cannula 3.0 98.0 Labs: Laboratory Tests Test 10/12/21 13:00 10/12/21 13:33 10/12/21 13:55 10/12/21 16:30 Prothrombin Time 15.3 SEC Prothromb Time International Ratio 1.2 Activated Partial Thromboplast Time 25 SEC White Blood Count 15.7 x10^3/uL Red Blood Count 3.39 x10^6/uL Hemoglobin 9.3 g/dL Hematocrit 28.5 % Mean Corpuscular Volume 84 fL Mean Corpuscular Hemoglobin 28 pg Mean Corpuscular Hemoglobin Concent 33 g/dL Red Cell Distribution Width 14.7 % Platelet Count 422 x10^3/uL Neutrophils (%) (Auto) 84 % Lymphocytes (%) (Auto) 8 % Monocytes (%) (Auto) 8 % Eosinophils (%) (Auto) 0 % Basophils (%) (Auto) 0 % Neutrophils # (Auto) 13.1 x10^3/uL Lymphocytes # (Auto) 1.2 x10^3/uL Monocytes # (Auto) 1.3 x10^3/uL Eosinophils # (Auto) 0.0 x10^3/uL Basophils # (Auto) 0.1 x10^3/uL Segmented Neutrophils % 89 % Lymphocytes % 6 % Monocytes % 5 % Platelet Estimate Increased Polychromasia Present Poikilocytosis Slight Anisocytosis Slight Spherocytes Occ Ovalocytes Occ Sodium Level 117 mmol/L Potassium Level 4.4 mmol/L Chloride Level 88 mmol/L Carbon Dioxide Level 19 mmol/L Anion Gap 10 Blood Urea Nitrogen 16 mg/dL Creatinine 0.8 mg/dL Estimated GFR (Cockcroft-Gault) 70.3 BUN/Creatinine Ratio 20 Glucose Level 118 mg/dL Lactic Acid Level 1.8 mmol/L Calcium Level 8.5 mg/dL Total Bilirubin 1.7 mg/dL Aspartate Amino Transf (AST/SGOT) 115 U/L Alanine Aminotransferase (ALT/SGPT) 90 U/L Alkaline Phosphatase 201 U/L Ammonia < 10 mcmol/L Troponin I High Sensitivity 580 ng/L FT-Pdy-V-Type Natriuretic Peptide 3025 pg/mL Total Protein 6.9 g/dL Albumin 2.6 g/dL Albumin/Globulin Ratio 0.6 Influenza Type A Antigen Negative Influenza Type B Antigen Negative SARS-CoV-2 RNA (CLAIRE) Negative SARS-CoV-2 Antigen (Rapid) Negative Urine Collection Type U cath Urine Color Yellow Urine Clarity Clear Urine pH 6.5 Urine Specific [place] >=1.030 Urine Protein Negative mg/dL Urine Glucose (UA) Negative mg/dL Urine Ketones (Stick) 15 mg/dL Urine Blood Negative Urine Nitrite Negative Urine Bilirubin Negative Urine Urobilinogen Dipstick 1.0 mg/dL Urine Leukocyte Esterase Negative Urine RBC 0 /HPF Urine WBC Occ /HPF Urine Squamous Epithelial Cells Few /LPF Urine Bacteria Few /HPF Urine Hyaline Casts Occasional /HPF Urine Mucus Slight /LPF Test 10/12/21 17:35 10/12/21 18:25 10/13/21 05:05 Troponin I High Sensitivity 508 ng/L 595 ng/L White Blood Count 17.5 x10^3/uL Red Blood Count 3.30 x10^6/uL Hemoglobin 9.1 g/dL Hematocrit 28.0 % Mean Corpuscular Volume 85 fL Mean Corpuscular Hemoglobin 28 pg Mean Corpuscular Hemoglobin Concent 33 g/dL Red Cell Distribution Width 14.5 % Platelet Count 322 x10^3/uL Sodium Level 123 mmol/L Potassium Level 5.0 mmol/L Chloride Level 92 mmol/L Carbon Dioxide Level 20 mmol/L Anion Gap 11 Blood Urea Nitrogen 15 mg/dL Creatinine 0.8 mg/dL Estimated GFR (Cockcroft-Gault) 70.3 Glucose Level 78 mg/dL Calcium Level 8.3 mg/dL Triglycerides Level 126 mg/dL Cholesterol Level 289 mg/dL LDL Cholesterol, Calculated 241 mg/dL VLDL Cholesterol, Calculated 25 mg/dL Non-HDL Cholesterol Calculated 266 mg/dL HDL Cholesterol 23 mg/dL Cholesterol/HDL Ratio 12.6 Thyroid Stimulating Hormone (TSH) 3.413 uIU/mL PE: GEN: NAD, appears chronically ill LUNGS: diminished, 3L NC HEART: RRR ABD: distended NEURO/PSYCH: A & O 3 A/P: Cirrhosis/ELY, recurrent ascites ACD - stable Hyponatremia - better - per Dr. Perez H/o CHF - cardiology following Chronic loose stools, h/o C Diff COVID negative -- Awaiting paracentesis. Okay to ADAT per GI w/ fluid/salt restriction. Check C Diff as able. Justicifation of Admission Dx: Justifications for Admission: Justification of Admission Dx: Yes ANDREW JIMENEZ Oct 13, 2021 11:22
--- NOTE | 2021-10-13 13:33 | RAD ---
Ultrasound-guided paracentesis. 10/13/2021 1:31 PM Indication: Reason: recurrent ascites / Discussion: The risks and benefits of the procedure including but not limited to bleeding, hypotensio n, and infection were discussed the patient. Informed consent was obtained. Ultrasound evaluation was performed demonstrating ascites, with the largest pocket and the right lower quadrant. The right low er quadrant was prepped and draped in sterile fashion. 1% lidocaine without epinephrine was administe red for local anesthesia. Under direct ultrasound guidance a 5 [place] Yueh needle was advanced into t he peritoneal space. Serous fluid was aspirated. The catheter was connected to suction and approximat shiloh 6.5 liters of fluid was removed. The catheter was then removed and manual pressure was held to a chieve hemostasis. A sterile dressing was applied. Impression: Ultrasound-guided paracentesis with removal of 6.5 L of ascites Electronically signed by: Brian Castañeda MD (10/13/2021 1:31 PM) [id number]
--- NOTE | 2021-10-13 14:15 | NUR ---
SS following for discharge planning. SS reviewed pt chart and discussed with pt RN. Pt is from home and is currently requiring oxygen at three liters nasal canula. COVID19 negative. GI and Cardiology consulted. Paracentesis today. SS will continue to follow for discharge planning.
[2021-10-13 16:19] LABS: BF SOURCE PERITONEAL
[2021-10-13 16:20] LABS: BF CLARITY CLEAR; BF COLOR STRAW; BF MON % 60 %; BF OTHER % 5 %; BF PMN % 35 %; BF RBC COUNT 5 /cmm (Not Established); BF WBC COUNT 47 /cmm (Not Established)
--- NOTE | 2021-10-13 18:34 | HP ---
DATE OF SERVICE: 10/13/2021 ADMIT DATE: 10/12/2021 CHIEF COMPLAINT AND HISTORY OF PRESENT ILLNESS: This is a 71-year-old female who is well known to me in from followup in the office. The patient was found on the floor by her son. She has had generalized weakness, falls, abdominal pain, diarrhea, vomiting and was so weak that he felt she needed to go to the hospital and brought her to the Emergency Room. There, she was found to have evidence of severe hyponatremia, ascites, paraesophageal varices and probable portal hypertension with generalized colonic wall thickening. She was admitted for the same with extreme weakness. PAST MEDICAL HISTORY: Remarkable for the cryptogenic liver disease with cirrhosis, portal hypertension, splenomegaly. PAST SURGICAL HISTORY: Remarkable for hysterectomy, possible paracentesis. MEDICATIONS: Brought with the patient, listed on computer have been addressed. ALLERGIES: MULTIPLE. SOCIAL HISTORY: She is a former smoker, nondrinker, does not use drugs. Single. FAMILY HISTORY: Noncontributory. REVIEW OF SYSTEMS: Remarkable for the profound weakness for her abdominal pain. She does not feel nauseated currently. PHYSICAL EXAMINATION: GENERAL: She is well-developed, well-nourished, ill-appearing white female in no acute distress, lying in bed. VITAL SIGNS: Stable. She is afebrile. HEAD, EYES, EARS, NOSE AND THROAT: Unremarkable. There is no icterus. NECK: Supple, without adenopathy or thyromegaly. CHEST: Clear to auscultation and percussion. HEART: Regular rate and rhythm without S3, S4 or murmur. ABDOMEN: Distended with positive fluid wave, which is very different than a month or so ago when I saw her in the office where her fluid overload was very well controlled. EXTREMITIES: Without masses, clubbing, edema. NEUROLOGIC: Intact or nonfocal. LABORATORY DATA: Initial lab remarkable for her being COVID and influenza negative. White count is slightly elevated at 16,000, platelet count is within normal limits. Hemoglobin is 9.3. Sodium initially is 117, BUN 16, creatinine 0.8, total bilirubin 1.7, AST 115, ALT 90, alkaline phosphatase 201. Troponin is high on admission and Cardiology has been consulted for the same. IMAGING: Shows that referenced above. Head CT and cervical spine CT are without any significant findings. ASSESSMENT: 1. Severe hyponatremia with symptomatology, most likely all related to the same. 2. Idiopathic cirrhosis with significant ascites by exam. PLAN: Normal saline, probable paracentesis. GI consult. We will need to make sure if she is able to keep her appointment with the liver transplant people at . Cardiology consult for the elevated troponin. The patient will be monitored, managed and treated appropriately. JARROD DR: Anabelle TID: [id number]
[2021-10-14 02:57] VITALS: BP 113/63
[2021-10-14] MEDS: IV NORMAL SALINE 1000ML BAG 1,000 ML IV PRN ×2 (04:58→11:56)
[2021-10-14 07:00] VITALS: BP 116/53
[2021-10-14] MEDS: PANTOPRAZOLE 40 MG TABLET.DR. PO SCH (08:17)
[2021-10-14 11:00] VITALS: BP 135/55
--- NOTE | 2021-10-14 12:31 | PN ---
DATE: 10/14/2021 DAILY PROGRESS NOTE LOCATION: She is in room 675. SUBJECTIVE: This 71-year-old female remains hospitalized with profound weakness, falls, found to have severe hyponatremia, ascites for which she has had 6-1/2 liters removed with her stomach much better, but has developed hypoxia since yesterday of uncertain etiology and chest x-ray will be checked. OBJECTIVE: VITAL SIGNS: Stable. She is afebrile. GENERAL: She is awake and alert. Denies shortness of breath, but is on 6 liters, remains with nonrebreather mask, satting in the upper 80s. CHEST: Reveals somewhat decreased breath sounds bilaterally. HEART: Regular rate and rhythm. ABDOMEN: Much less protuberant and soft. EXTREMITIES: Without cyanosis, clubbing, significant edema. NEUROLOGIC: She is intact. LABORATORY DATA: No new labs for review this morning. IMPRESSION: 1. Severe hyponatremia with symptomatology of weakness, probably all related to the same. 2. Cryptogenic cirrhosis with significant ascites, removed. 3. Unexplained hypoxia. PLAN: Chest x-ray. She is getting saline and possibly this could be responsible with the pleural effusions present on admission. We will ask Pulmonary for their help in addition and GI help is appreciated. CRISTELA/CECILIA/SAUL DR: CRISTELA/nathaniel TID: [id number]
--- NOTE | 2021-10-14 13:58 | RAD ---
EXAM: CHEST 1 VIEW History: Hypoxia COMPARISON: None available. TECHNIQUE: Single portable radiograph of the chest FINDINGS: The cardiomediastinal silhouette grossly appears unremarkable. Diffuse airspace and interstitial opa cities identified in the bilateral lungs throughout likely diffuse infiltrates likely pneumonia with congestive changes or interstitial infiltrates.. IMPRESSION: Diffuse airspace and interstitial opacities identified in the bilateral lungs likely diffuse infiltra yocasta likely pneumonia with congestive changes or interstitial infiltrates. Follow-up to resolution. Electronically signed by: Elver Thomas MD (10/14/2021 1:56 PM) [id number]
[2021-10-14] MEDS ORDERED: diazePAM 5 MG TABLET PO PRN (14:45)
[2021-10-14] MEDS ORDERED: FUROSEMIDE 40 MG/4 ML VIAL. IVP ONE (14:45)
[2021-10-14 15:00] VITALS: BP 113/53
[2021-10-14 15:10] LABS: BASE EXCESS ABG -10 mmol/L (-3-3); HCO3 ABG 14 mmol/L (21-28); PCO2 ABG 26 mmHg (35-46); PO2 ABG 62 mmHg (65-108); SAT O2 ABG 89 % (92-99)
[2021-10-14 15:21] LABS: FIO2 ABG 15L NRB
[2021-10-14] MEDS ORDERED: PIP/TAZO PER PHARMACY MC PRN (15:45)
--- NOTE | 2021-10-14 15:51 | PDOC ---
PULMONARY PROGRESS NOTES DATE: 10/14/21 TIME: 15:48 Vitals Vital Signs Date Time Temp Pulse Resp B/P (MAP) Pulse Ox O2 Delivery O2 Flow Rate FiO2 10/14/21 15:05 92 NonRebreather Mask 15.0 10/14/21 11:00 97.0 84 20 135/55 (81) 97.0 Labs Laboratory Tests Test 10/12/21 16:30 10/12/21 17:35 10/12/21 18:25 10/13/21 05:05 Urine Collection Type U cath Urine Color Yellow Urine Clarity Clear Urine pH 6.5 (<5.0-8.0) Urine Specific Belt >=1.030 (1.000-1.030) Urine Protein Negative mg/dL (NEG-TRACE) Urine Glucose (UA) Negative mg/dL (NEG) Urine Ketones (Stick) 15 mg/dL (NEG) Urine Blood Negative (NEG) Urine Nitrite Negative (NEG) Urine Bilirubin Negative (NEG) Urine Urobilinogen Dipstick 1.0 mg/dL (0.2 mg/dL) Urine Leukocyte Esterase Negative (NEG) Urine RBC 0 /HPF (0-2) Urine WBC Occ /HPF (0-4) Urine Squamous Epithelial Cells Few /LPF Urine Bacteria Few /HPF (0-FEW) Urine Hyaline Casts Occasional /HPF Urine Mucus Slight /LPF Troponin I High Sensitivity 508 ng/L (4-50) 595 ng/L (4-50) White Blood Count 17.5 x10^3/uL (4.0-11.0) Red Blood Count 3.30 x10^6/uL (3.50-5.40) Hemoglobin 9.1 g/dL (12.0-15.5) Hematocrit 28.0 % (36.0-47.0) Mean Corpuscular Volume 85 fL (79-100) Mean Corpuscular Hemoglobin 28 pg (25-35) Mean Corpuscular Hemoglobin Concent 33 g/dL (31-37) Red Cell Distribution Width 14.5 % (11.5-14.5) Platelet Count 322 x10^3/uL (140-400) Sodium Level 123 mmol/L (136-145) Potassium Level 5.0 mmol/L (3.5-5.1) Chloride Level 92 mmol/L (98-107) Carbon Dioxide Level 20 mmol/L (21-32) Anion Gap 11 (6-14) Blood Urea Nitrogen 15 mg/dL (7-20) Creatinine 0.8 mg/dL (0.6-1.0) Estimated GFR (Cockcroft-Gault) 70.3 Glucose Level 78 mg/dL (70-99) Calcium Level 8.3 mg/dL (8.5-10.1) Triglycerides Level 126 mg/dL (0-150) Cholesterol Level 289 mg/dL (0-200) LDL Cholesterol, Calculated 241 mg/dL (0-100) VLDL Cholesterol, Calculated 25 mg/dL (0-40) Non-HDL Cholesterol Calculated 266 mg/dL (0-129) HDL Cholesterol 23 mg/dL (40-60) Cholesterol/HDL Ratio 12.6 Thyroid Stimulating Hormone (TSH) 3.413 uIU/mL (0.358-3.74) Test 10/13/21 12:43 10/14/21 15:05 Body Fluid Source Peritoneal Body Fluid Color Straw Body Fluid Clarity Clear Body Fluid Nucleated Cells 47 /cmm (Not Established) Body Fluid Mononuclear WBCs (%) 60 % Body Fluid Polymorphonuclear Cells 35 % Body Fluid Total RBCs Counted 5 /cmm (Not Established) Body Fluid Other Cells (%) 5 % O2 Saturation 89 % (92-99) Arterial Blood pH 7.36 (7.35-7.45) Arterial Blood pCO2 at Patient Temp 26 mmHg (35-46) Arterial Blood pO2 at Patient Temp 62 mmHg (65-108) Arterial Blood HCO3 14 mmol/L (21-28) Arterial Blood Base Excess -10 mmol/L (-3-3) FiO2 15l nrb Laboratory Tests Test 10/14/21 15:05 O2 Saturation 89 % (92-99) Arterial Blood pH 7.36 (7.35-7.45) Arterial Blood pCO2 at Patient Temp 26 mmHg (35-46) Arterial Blood pO2 at Patient Temp 62 mmHg (65-108) Arterial Blood HCO3 14 mmol/L (21-28) Arterial Blood Base Excess -10 mmol/L (-3-3) FiO2 15l nrb Medications Active Scripts Medications Dose Route/Sig Max Daily Dose Days Date Category Aldactone (Spironolactone) 25 Mg Tablet 0.5 Tab PO DAILY 07/03/21 Reported Tramadol Hcl 50 Mg Tablet 50 Mg PO DAILY PRN 07/03/21 Reported Prozac (Fluoxetine Hcl) 40 Mg Capsule 60 Mg PO DAILY 07/03/21 Reported Doxepin Hcl 25 Mg Capsule 25 Mg PO DAILY 07/03/21 Reported Diazepam 5 Mg Tablet 5 Mg PO HS 06/15/21 Reported Synthroid (Levothyroxine Sodium) 25 Mcg Tablet 25 Mcg PO DAILYAC 06/15/21 Reported Impression . CHART REVIEWED CONSULT TO July CONNELLY D/W RN RESP FAILURE MULTIFACTORIAL START ANTIBIOTICS FOR POSSIBLE SEPSIS BIPAP PRN PROGNOSIS SI POOR THANKS MACO JOHNSON MD Oct 14, 2021 15:51
--- NOTE | 2021-10-14 17:20 | PDOC ---
PROGRESS NOTES Date of Service DATE: 10/14/21 TIME: 17:16 Subjective Subjective Patient seen and examined Objective Objective Vital Signs Date Time Temp Pulse Resp B/P (MAP) Pulse Ox O2 Delivery O2 Flow Rate FiO2 10/14/21 16:05 92 10/14/21 15:05 NonRebreather Mask 15.0 10/14/21 15:00 98.6 85 20 113/53 (73) 98.6 Intake and Output 10/14/21 07:00 Intake Total 0 ml Output Total 6600 ml Balance -6600 ml Intake Oral 0 ml Output Urine Total 0 ml Drainage Total 6600 ml # Voids 5 Physical Exam Abdomen: Normal bowel sounds Heart: Regular rate General: mild distress Lungs: Other (Slightly decreased breath sounds) Assessment Assessment Problems Medical Problems: (1) Cirrhosis of liver with ascites Status: Acute (2) Elevated troponin Status: Acute (3) Hyponatremia Status: Acute (4) Pleural effusion Status: Acute Abdominal pain with hx of cirrhosis. The patient is feeling better today. Possible GI evaluation. Severe hyponatremia with associated recent nausea/vomiting and diarrhea. Sodium significantly improved from 117 yesterday to 123 today. Continue present treatment. Chronic diastolic CHF: clinically compensated Cirrhosis/Ascites. As per GI above. Mild troponin elevation: no CP or SOA. EKG SR without acute changes. Troponin levels of 508 and 595. We will recheck tomorrow morning. Recent EF nml. 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 Morning TSH of 3.4. CARDIAC CONSULT Comment Review of Relevant I have reviewed the following items charity (where applicable) has been applied. Labs Laboratory Tests Test 10/12/21 17:35 10/12/21 18:25 10/13/21 05:05 10/13/21 12:43 Troponin I High Sensitivity 508 ng/L (4-50) 595 ng/L (4-50) White Blood Count 17.5 x10^3/uL (4.0-11.0) Red Blood Count 3.30 x10^6/uL (3.50-5.40) Hemoglobin 9.1 g/dL (12.0-15.5) Hematocrit 28.0 % (36.0-47.0) Mean Corpuscular Volume 85 fL (79-100) Mean Corpuscular Hemoglobin 28 pg (25-35) Mean Corpuscular Hemoglobin Concent 33 g/dL (31-37) Red Cell Distribution Width 14.5 % (11.5-14.5) Platelet Count 322 x10^3/uL (140-400) Sodium Level 123 mmol/L (136-145) Potassium Level 5.0 mmol/L (3.5-5.1) Chloride Level 92 mmol/L (98-107) Carbon Dioxide Level 20 mmol/L (21-32) Anion Gap 11 (6-14) Blood Urea Nitrogen 15 mg/dL (7-20) Creatinine 0.8 mg/dL (0.6-1.0) Estimated GFR (Cockcroft-Gault) 70.3 Glucose Level 78 mg/dL (70-99) Calcium Level 8.3 mg/dL (8.5-10.1) Triglycerides Level 126 mg/dL (0-150) Cholesterol Level 289 mg/dL (0-200) LDL Cholesterol, Calculated 241 mg/dL (0-100) VLDL Cholesterol, Calculated 25 mg/dL (0-40) Non-HDL Cholesterol Calculated 266 mg/dL (0-129) HDL Cholesterol 23 mg/dL (40-60) Cholesterol/HDL Ratio 12.6 Thyroid Stimulating Hormone (TSH) 3.413 uIU/mL (0.358-3.74) Body Fluid Source Peritoneal Body Fluid Color Straw Body Fluid Clarity Clear Body Fluid Nucleated Cells 47 /cmm (Not Established) Body Fluid Mononuclear WBCs (%) 60 % Body Fluid Polymorphonuclear Cells 35 % Body Fluid Total RBCs Counted 5 /cmm (Not Established) Body Fluid Other Cells (%) 5 % Test 10/14/21 15:05 O2 Saturation 89 % (92-99) Arterial Blood pH 7.36 (7.35-7.45) Arterial Blood pCO2 at Patient Temp 26 mmHg (35-46) Arterial Blood pO2 at Patient Temp 62 mmHg (65-108) Arterial Blood HCO3 14 mmol/L (21-28) Arterial Blood Base Excess -10 mmol/L (-3-3) FiO2 15l nrb Laboratory Tests Test 10/14/21 15:05 O2 Saturation 89 % (92-99) Arterial Blood pH 7.36 (7.35-7.45) Arterial Blood pCO2 at Patient Temp 26 mmHg (35-46) Arterial Blood pO2 at Patient Temp 62 mmHg (65-108) Arterial Blood HCO3 14 mmol/L (21-28) Arterial Blood Base Excess -10 mmol/L (-3-3) FiO2 15l nrb Microbiology 10/13/21 Gram Stain - Final, Resulted 10/13/21 Aerobic and Anaerobic Culture - Preliminary, Resulted 10/12/21 Blood Culture - Preliminary, Resulted NO GROWTH AFTER 1 DAY Medications Current Medications Fentanyl Citrate (Fentanyl 2ml Vial) 50 mcg 1X ONCE IVP Last administered on 10/12/21at 15:02; Start 10/12/21 at 14:00; Stop 10/12/21 at 14:01; Status DC Ondansetron HCl (Zofran) 4 mg 1X ONCE IVP Last administered on 10/12/21at 15:01; Start 10/12/21 at 14:00; Stop 10/12/21 at 14:01; Status DC Iohexol (Omnipaque 300 Mg/ml) 75 ml 1X ONCE IV Last administered on 10/12/21at 14:43; Start 10/12/21 at 14:30; Stop 10/12/21 at 14:31; Status DC Sodium Chloride 1,000 ml @ 999 mls/hr 1X ONCE IV Last administered on 10/12/21at 15:02; Start 10/12/21 at 14:30; Stop 10/12/21 at 15:30; Status DC Info (CONTRAST GIVEN -- Rx MONITORING) 1 each PRN DAILY PRN MC SEE COMMENTS; Start 10/12/21 at 14:30; Stop 10/14/21 at 14:29; Status DC Ondansetron HCl (Zofran) 4 mg PRN Q8HRS PRN IVP NAUSEA/VOMITING; Start 10/12/21 at 16:00; Stop 10/12/21 at 20:36; Status DC Fentanyl Citrate (Fentanyl 2ml Vial) 50 mcg PRN Q3HRS PRN IVP PAIN Last administered on 10/13/21at 14:47; Start 10/12/21 at 16:00; Stop 10/13/21 at 15:59; Status DC Sodium Chloride 1,000 ml @ 100 mls/hr CONT PRN IV SEE I/O RECORD Last administered on 10/14/21at 11:56; Start 10/12/21 at 16:00 Pantoprazole Sodium (Protonix) 40 mg DAILY PO Last administered on 10/14/21at 08:17; Start 10/12/21 at 17:00 Metoclopramide HCl (Reglan Vial) 10 mg 1X ONCE IVP ; Start 10/12/21 at 20:45; Stop 10/12/21 at 20:46; Status UNV Ondansetron HCl (Zofran) 4 mg PRN Q4HRS PRN IVP NAUSEA/VOMITING Last administered on 10/12/21at 20:43; Start 10/12/21 at 20:45 Furosemide (Lasix) 40 mg 1X ONCE IVP Last administered on 10/14/21at 15:06; Start 10/14/21 at 14:45; Stop 10/14/21 at 14:52; Status DC Diazepam (Valium) 5 mg PRN Q8HRS PRN PO ANXIETY Last administered on 10/14/21at 15:06; Start 10/14/21 at 14:45 Piperacillin Sod/ Tazobactam Sod (Zosyn Per Pharmacy) 1 each PRN DAILY PRN MC SEE COMMENTS; Start 10/14/21 at 15:45 Piperacillin Sod/ Tazobactam Sod 3.375 gm/Sodium Chloride 50 ml @ 100 mls/hr Q6HRS IV Last administered on 10/14/21at 16:28; Start 10/14/21 at 18:00 Active Scripts Active Reported Aldactone (Spironolactone) 25 Mg Tablet 0.5 Tab PO DAILY Tramadol Hcl 50 Mg Tablet 50 Mg PO DAILY PRN Prozac (Fluoxetine Hcl) 40 Mg Capsule 60 Mg PO DAILY Doxepin Hcl 25 Mg Capsule 25 Mg PO DAILY Diazepam 5 Mg Tablet 5 Mg PO HS Synthroid (Levothyroxine Sodium) 25 Mcg Tablet 25 Mcg PO DAILYAC Vitals/I & O Vital Sign - Last 24 Hours 10/13/21 10/13/21 10/13/21 10/13/21 19:55 20:00 23:13 23:23 Temp 97.0 97.4 97.0 97.4 Pulse 107 96 96 Resp 20 18 B/P (MAP) 101/48 (65) 97/50 (66) 101/51 (68) Pulse Ox 91 90 O2 Delivery Nasal Cannula Nasal Cannula Nasal Cannula O2 Flow Rate 4.0 3.5 4.0 10/14/21 10/14/21 10/14/21 10/14/21 02:57 07:00 08:00 11:00 Temp 98.1 97.6 97.0 98.1 97.6 97.0 Pulse 95 95 84 Resp 18 20 20 B/P (MAP) 113/63 (80) 116/53 (74) 135/55 (81) Pulse Ox 92 74 84 O2 Delivery Simple Mask Simple Mask Non-Rebreather Simple Mask O2 Flow Rate 7.0 7.0 7.0 7.0 10/14/21 10/14/21 10/14/21 15:00 15:05 16:05 Temp 98.6 98.6 Pulse 85 Resp 20 B/P (MAP) 113/53 (73) Pulse Ox 85 92 92 O2 Delivery Simple Mask NonRebreather Mask O2 Flow Rate 7.0 15.0 Intake and Output 10/13/21 10/13/21 10/14/21 15:00 23:00 07:00 Intake Total 0 ml Output Total 6600 ml 0 ml Balance -6600 ml 0 ml 0 ml Justifications for Admission Other Justification KALEB SAAVEDRA MD Oct 14, 2021 17:20
[2021-10-14] MEDS ORDERED: PIPERACILLIN/TAZOBACTAM 3.375 GM in IV NORMAL SALINE 50ML 50 ML IV SCH (18:00)
[2021-10-14 19:00] VITALS: BP 120/56
[2021-10-14] MEDS ORDERED: EPINEPHrine VIAL 5 MG in IV NORMAL SALINE 250ML 250 ML IV PRN (20:15)
--- NOTE | 2021-10-14 20:53 | NUR ---
PT FOUND ON BIPAP WITH O2 SAT 33% PT WITH PULSE ,PT BAGGED RAPID RESPONSE CALLED PT WENT PULSELESS CODE BLUE CALLED AT 2012 CALL PLACED TO PT LYLE MATHEW RE: PT STATUS , CALL PLACED TO RE PT BEING CODED AND TRANSFERRED TO ICU.
[2021-10-14 21:20] LABS: BASE EXCESS ABG -28 mmol/L (-3-3); HCO3 ABG 7 mmol/L (21-28); PCO2 ABG 55 mmHg (35-46); PO2 ABG 56 mmHg (65-108)
[2021-10-14 21:21] LABS: SAT O2 ABG 58 % (92-99)
[2021-10-14 21:22] LABS: FIO2 ABG 100 (ambubag)
[2021-10-14] MEDS ORDERED: NOREPINEPHRINE VIAL 8 MG in IV DEXTROSE 5% 250 ML IV PRN (21:45)
[2021-10-14] MEDS ORDERED: ATROPINE 1 MG/10 ML DISP.SYRINGE. ONE (22:00)
[2021-10-14] MEDS ORDERED: EPINEPHrine SYRINGE 1 MG/10 ML SYRINGE. ONE (22:00)
[2021-10-14] MEDS ORDERED: NOREPINEPHRINE VIAL 32 MG in IV D5W 250ML IV PRN (22:00)
[2021-10-14] MEDS ORDERED: SODIUM BICARB ADULT 8.4% 50 MEQ/50 ML DISP.SYRIN. ONE (22:00)
[2021-10-14] MEDS ORDERED: CALCIUM CHLORIDE 1,000 MG/10 ML DISP.SYRIN ONE (22:00)
[2021-10-14] MEDS ORDERED: DEXTROSE 50% 25 GM / 50ML DISP.SYRIN. IV ONE (22:00)
[2021-10-14] MEDS ORDERED: EPINEPHrine VIAL 10 MG in IV NORMAL SALINE 250ML IV PRN (22:00)
--- NOTE | 2021-10-14 22:00 | RAD ---
Exam: Chest one view. Abdomen one view INDICATION: Intubation, OG tube placement TECHNIQUE: Frontal view of the chest and abdomen Comparisons: Chest x-ray earlier today FINDINGS: Endotracheal tube with tip approximately 4 cm above the alok. Enteric tube traverses below the diap hragm with tip in the upper abdomen likely within the stomach. Heart is enlarged. Pulmonary vessels are within normal limits. Patchy bilateral airspace disease. No pleural effusion. Air-filled bowel in the abdomen. No suspicious masses or calcifications. IMPRESSION: 1. Lines and tubes described above. 2. Persistent extensive bilateral airspace disease. Electronically signed by: Jillian Josue MD (10/14/2021 9:58 PM) ELIESER
[2021-10-14 22:42] LABS: BASE EXCESS ABG -31 mmol/L (-3-3); HCO3 ABG 4 mmol/L (21-28); PCO2 ABG 41 mmHg (35-46); PO2 ABG 95 mmHg (65-108); SAT O2 ABG 86 % (92-99)
[2021-10-14 22:54] LABS: FIO2 ABG 100% 5peep 450vt f14
[2021-10-14] MEDS ORDERED: MORPHINE SULFATE 4 MG/ML INJ. IV ONE (23:45)
[2021-10-14] MEDS ORDERED: MORPHINE SULFATE 4 MG/ML INJ. IV PRN (23:45)
--- NOTE | 2021-10-15 01:50 | PDOC5 ---
CODE REPORT CODE REPORT Called to cardiac arrest on 6th floor about 1999 hip initially found to be hypoxic by nurse, patient had pulses but began to bradycardia down and was in PEA. Patient was given epinephrine, ordered sodium bicarb and calcium given as well. Able to get pulses back on the patient but they were faint. Unable to get blood pressure. Patient intubated with good breath sounds. Patient Patient epinephrine until the drip arrived. Patient still having heart rates that dropped down to the 30s with low blood pressure. Able to palpate a thready radial pulse flow. Patient also started on dopamine. Initial rhythm on the media monitor was concerning for ST elevation. EKG done and consult placed to rotary engraver, Dr. Capps, who wanted a repeat EKG in 20 minutes. Repeat EKG again shows some slight ST elevation. Does not feel this is acute STEMI and is once optimized management and pressors in the ICU. Patient was intubated in emergent fashion and no consent was obtained. Patient was not sedated and paralyzed []. A glide scope with a size 4 blade was used, cords were visualized and a size seven-point endotracheal tube was placed during first attempt. Endotracheal tube cuff was inflated and confirmation est ablished by visualization of the cords passing the tubes, bilateral breath sounds, color change, and chest x-ray. Total critical care time: 65 The time involved in the performance of separately reportable/billable procedures was not counted toward critical care time. Due to a high probability of clinically significant, life-threatening deterioration the patient required a high level of care to intervene emergently and I personally spent this critical time directly and personally managing the patient. The critical care time included obtaining a history, examination of the patient, assessment of vital signs, ordering and review of studies, arranging urgent treatment with development of a management plan, evaluation of patient's response to treatment, frequent reassessment, and discussions with other providers and/or family members. RAMONITA BLUE again paged overhead from the ICU. Patient had began to bradycardia down and had long pauses before going pulseless. Patient had been given sodium bicarb and epinephrine prior to my arrival. Compressions were ongoing. Had return of a again weak pulse. Son at bedside and discussed that he does not want to continue resuscitation. Discussed that we do have a weak pulse but we do have the option of changing to a DNR and comfort measures. Patient would like her to be kept comfortable in the vasopressors and in the medications be ceased, would also like to have her extubated. Patient does not feel like she would want these efforts at wants her to be comfortable. Advised nurse to call patient's primary care provider to make him aware and have orders put in for pain control KYLE BHAT MD Oct 15, 2021 01:50
--- NOTE | 2021-10-15 02:20 | NUR ---
Pt arrived to unit from [address] [place] [address] post code at 2130. Pt arrived to unit intubated and OG in place. Chest xray obtained and placemnt of ET tube verified. Very faint pulse palpated in femoral. Pt temp 92.6, warm blanket and reuben hugger applied. Unable to obtain blood pressure. Blood sugar 28, amp D50 given. Recheck of blood sugar 218. Idioventricular rate on the monitor at 44bpm. Dr Chopra notified, no new orders as pt is too unstable for slab stripper interventions. Pt is maxed out on epi and dopamine drips. Levophed started at 0.5 at 2200. increased to 0.8 at 2210. Pt son at the bedside. Dr Haro notified of ABG, Ph 6.64, PC02 40, HCO3 4.3. Orders noted to increase respirations to 20. At 2322 pt continued to mikey down on the monitor and went asystole. No pulse found and code blue initiated. Son in the room. ROSC obtained at 2329 with very faint pulse. ER doctor speaking with the patients son. Son made the decision to make mother comfort care only. Pt remained idioventricular on the monitor, unable to obtain blood pressure. Pt went asystole again at 2347. Two nurse verification of time of at 2347. Dr Perez notified of patients . Belongings given to son to take home. After the son went home [address] [place] [address] brought us more patient belongings that they found. [place] [facility] [place]
--- NOTE | 2021-10-15 13:44 | EKG ---
[facility] [address] [place] [address] Test Date: 2021-10-14 Test Time: 20:56:40 Pat Name: NEFTALI RUIZ Department: Room: 113 1 Gender: F [employer] Carry Out: CANDELARIA : 1950 Requested By: RODRIGO HAYWARD Order Number: [id number] Reading MD: Rodrigo Hayward Measurements Intervals Rickman Rate: 51 P: W[place]: QRS: -62 QRSD: 124 T: 82 QT: 432 QTc: 400 Interpretive Statements PRIMARILY JUNCTIONAL RHYTHM DIFFUSE ST T WAVE CHANGES Electronically Signed On 10-16-2021 11:51:55 MIXING TECHNICIAN by Rodrigo Hayward
== END 2021-10-14 23:55 | DRG 432 ==
LOC: ER 11:51 → 6 SOUTH 17:04 → ED HOLD 17:04 → 6 SOUTH 21:06 → 1 WEST ICU 10-14 21:30
PROVIDERS: ADMIT Family Medicine; ATTEND Family Medicine
PROC: 0W9G3ZZ Drainage of Peritoneal Cavity, Percutaneous Approach (ICD-10-PCS; 2021-10-13)
PROC: 5A09357 Assistance with Respiratory Ventilation, Less than 24 Consecutive Hours, Continuous Positive Airway Pressure (ICD-10-PCS; principal; 2021-10-14)
PROC: 5A1935Z Respiratory Ventilation, Less than 24 Consecutive Hours (ICD-10-PCS; 2021-10-14)
PROC: 0BH17EZ Insertion of Endotracheal Airway into Trachea, Via Natural or Artificial Opening (ICD-10-PCS; 2021-10-14)
DX: K74.69 Other cirrhosis of liver (principal); I21.A1 Myocardial infarction type 2; J96.01 Acute respiratory failure with hypoxia; E87.1 Hypo-osmolality and hyponatremia; I50.32 Chronic diastolic (congestive) heart failure; I85.10 Secondary esophageal varices without bleeding; K76.6 Portal hypertension; R18.8 Other ascites; Z79.01 Long term (current) use of anticoagulants; E03.9 Hypothyroidism, unspecified; E78.5 Hyperlipidemia, unspecified; F17.210 Nicotine dependence, cigarettes, uncomplicated; H81.09 Meniere's disease, unspecified ear; I11.0 Hypertensive heart disease with heart failure; I34.0 Nonrheumatic mitral (valve) insufficiency; Z20.822 Contact with and (suspected) exposure to COVID-19; Z82.3 Family history of stroke; Z90.711 Acquired absence of uterus with remaining cervical stump; Z90.710 Acquired absence of both cervix and uterus; Z88.8 Allergy status to other drugs, medicaments and biological substances; Z88.0 Allergy status to penicillin; Z88.2 Allergy status to sulfonamides; I46.9 Cardiac arrest, cause unspecified; Z66 Do not resuscitate
CPT/HCPCS: 36415; 36600; 49083; 70450; 71045; 71260; 72125; 74018; 74177; 80048; 80053; 80061; 81001; 82140; 82805; 82962; 83605; 83880; 84443; 84484; 85007; 85025; 85027; 85610; 85730; 87040; 87075; 87428; 88112; 88305; 89050; 93005; 94002; 94660; 96361; 96374; 96375; J0171; J0461; J1940; J2270; J2405; J2543; J3010; J3490; J7030; J7050; Q9967; U0003; U0005; 99285-25; G0378